=== PATIENT | male | born 1970 | race Caucasian/White ===

== ENCOUNTER 2024-01-23 20:22 | Emergency (ER) | payer OTHER ==
--- NOTE | 2024-01-23 20:27 | ERPHSYRPT ---
- History of Present Illness Time Seen by Provider: 01/23/24 20:27 Source: patient, family Exam Limitations: no limitations Physician History: This is a 53-year-old white male patient who was brought in by private vehicle secondary to him experiencing fall when walking down the steps. Patient experienced a seizure and he does not recall all the events. He has been having more frequent breaks from seizures and he was seen by his neurologist recently and they added an antiseizure medication and has modified the dosing of his drug regimen. Patient complains of a headache, neck pain sternal pain right shoulder pain and left thumb pain. Patient came by private vehicle in the ambulance bay and he was transported to his emergency department room by wheelchair. We immediately placed a cervical collar on him. Occurred: just prior to arrival Reason for Fall: fell from standing pos Injuries/Pain Location: neck, upper extremity (Right shoulder and left thumb) Loss of Consciousness: seizure Quality: aching Severity of Pain-Max: moderate Severity of Pain-Current: mild (To moderate) Modifying Factors: Improves With: movement Associated Symptoms (Fall): extremity injury (Right shoulder pain and left thumb pain), neck pain, seizures, No abdominal pain, No back pain, No confusion, No chest pain, No shortness of breath Allergies/Adverse Reactions: No Known Drug Allergies Allergy (Verified 01/23/24 20:25) Home Medications: Topiramate 100 mg [Topamax 100 MG] 400 mg PO BID 11/30/14 [History] ARIPiprazole [Abilify Mycite] 2 mg PO DAILY 01/23/24 [History] Cenobamate [Xcopri] 25 mg PO DAILY 01/23/24 [History] Lacosamide 200 mg PO BID 01/23/24 [History] Rasagiline Mesylate 1 mg PO DAILY 01/23/24 [History] clonazePAM 0.5 tab PO BID 01/23/24 [History] Hx Tetanus, Diphtheria Vaccination/Date Given: Yes Hx Influenza Vaccination/Date Given: No Hx Pneumococcal Vaccination/Date Given: No Travel Risk - International Travel Have you traveled outside of the country in past 3 weeks: No - Emerging Infectious Disease Are you exhibiting symptoms associated with any current EIDs: No - Review of Systems Constitutional: No Symptoms Eyes: No Symptoms Ears, Nose, & Throat: No Symptoms Respiratory: No Symptoms Cardiac: No Symptoms Abdominal/Gastrointestinal: No Symptoms Genitourinary Symptoms: No Symptoms Musculoskeletal: Neck Pain, Fall, Injury (Shoulder and left thumb) Skin: No Symptoms Neurological: No Symptoms Psychological: No Symptoms Endocrine: No Symptoms Hematologic/Lymphatic: No Symptoms Immunological/Allergic: No Symptoms All Other Systems: Reviewed and Negative - Past Medical History Pertinent Past Medical History: Yes Neurological History: No Pertinent History ENT History: No Pertinent History Cardiac History: No Pertinent History Respiratory History: No Pertinent History - Past Surgical History Past Surgical History: Yes Other Surgical History: VAGUS NERVE STIMULATOR - Social History Smoking Status: Never smoker Exposure to second hand smoke: No Drug Use: none Patient Lives Alone: No - Nursing Vital Signs Nursing Vital Signs: Initial Vital Signs Temperature 96.7 F 01/23/24 20:26 Pulse Rate 69 01/23/24 20:26 Respiratory Rate 20 01/23/24 20:26 Blood Pressure 159/93 01/23/24 20:26 O2 Sat by Pulse Oximetry 98 01/23/24 20:26 Pain Scale Pain Intensity 9 - Mariela Coma Score Best Eye Response (Mariela): (4) open spontaneously Best Verbal Response (Mariela): (5) oriented Best Motor Response ([place]): (6) obeys commands Mariela Total: 15 - Physical Exam General Appearance: no apparent distress, alert, anxiety Head Injury: no evidence of injury Eye Exam: PERRL/EOMI, eyes nml inspection ENT Exam: airway nml, nml ext.inspection, No evidence of ENT injury, No dental injury Neck Exam: supple, trachea midline, full range of motion, normal alignment, normal inspection, c-collar in place (The patient arrived turning his head looking around to and fro by private vehicle. We placed a c-collar since he got into the emergency department room) Respiratory/Chest Exam: normal breath sounds, other (Tenderness over the sternum to palpation), No respiratory distress, No ecchymosis, No crepitus, No decreased breath sounds Cardiovascular Exam: normal heart sounds, regular rate/rhythm Gastrointestinal Exam: soft, normal bowel sounds, No tenderness Rectal Exam: not done Back Exam: normal inspection, normal range of motion, No CVA tenderness, No vertebral tenderness Extremity Exam: normal inspection, normal range of motion, tenderness (Right shoulder and left thumb) Neurologic Exam: alert, oriented x 3, cooperative, harpooner II-XII nml as tested, nml cerebellar function, nml station & gait, sensation nml Skin Exam: normal color, warm, dry SpO2 Interpretation: normal O2 Delivery: Room Air - Course Nursing assessment & vital signs reviewed: Yes EKG Interpreted by Me: RATE (77), NORMAL AXIS, NORMAL INTERVALS, Other (The computer readout describes atrial flutter. However in leads I and II for a brief period of time given the suggestion but the other leads show normal sinus rhythm with no evidence of acute ischemia.) Ordered Tests: Active Orders 24 hr Category Date Time Status Technical Assistant STAT Care 01/23/24 20:44 Active EKG-ER Only STAT Care 01/23/24 20:43 Active IV Insertion STAT Care 01/23/24 20:43 Active Pulse Oximetry (ED) STAT Care 01/23/24 20:43 Active Seizure Precautions -SCCHED STAT Care 01/23/24 20:43 Active CERVICAL SPINE WO CONTRAST [CT] Stat Exams 01/23/24 20:43 Taken CHEST WITHOUT CONTRAST [CT] Stat Exams 01/23/24 20:46 Taken HAND (MINIMUM 3 VIEWS) Stat Exams 01/23/24 20:47 Taken HEAD WITHOUT CONTRAST [CT] Stat Exams 01/23/24 20:43 Taken SHOULDER Stat Exams 01/23/24 20:47 Taken CBC W DIFF Stat Lab 01/23/24 20:55 Completed CMP Stat Lab 01/23/24 20:55 Completed TROPONIN Q4H Lab 01/23/24 20:55 Received UA W/RFX UR CULTURE Stat Lab 01/23/24 20:43 Ordered Medication Summary Generic Name Dose Route Start Last Admin Trade Name Freq PRN Reason Stop Dose Admin Oxycodone/Acetaminophen 2 tab 01/23/24 22:22 Oxycodone Hcl/Apap 5 Mg/325 Mg Tablet PO 01/23/24 22:23 SENT HOME W/ PATIENT STA Discontinued Medications Generic Name Dose Route Start Last Admin Trade Name Freq PRN Reason Stop Dose Admin Morphine Sulfate 4 mg 01/23/24 22:21 Morphine Sulfate 4 Mg/Ml Injection IV 01/23/24 22:22 STAT ONE Ondansetron HCl 4 mg 01/23/24 22:21 Ondansetron Hcl 4 Mg/2 Ml Vial IV 01/23/24 22:22 STAT ONE Lab/Rad Data: Laboratory Result Diagrams 01/23/24 20:55 01/23/24 20:55 Laboratory Results 01/23/24 01/23/24 Range/Units 20:55 20:55 WBC 10.7 H (4.23-9.07) x10^3/uL RBC 4.48 L (4.63-6.08) x10^6/uL Hgb 15.3 (13.7-17.5) g/dL Hct 42.5 (40.1-51.0) % MCV 94.9 H (79.0-92.2) fL MCH 34.2 H (25.7-32.2) pg MCHC 36.0 (32.3-36.5) g/dL RDW 12.0 (11.6-14.4) % Plt Count 150 L (163-337) x10^3/uL MPV 9.1 L (9.4-12.4) fL Gran % 86.7 H (34.0-67.9) % Immature Gran % (Auto) 0.8 H (0.001-0.429) % Nucleat RBC Rel Count 0.0 (0.00-0.2) % Eos # (Auto) 0.03 L (0.04-0.54) x10^3/uL Immature Gran # (Auto) 0.09 H (0.001-0.031) x10^3u/L Absolute Lymphs (auto) 0.74 L (1.32-3.57) x10^3/uL Absolute Monos (auto) 0.54 (0.30-0.82) x10^3/uL Absolute Nucleated RBC 0.00 (0.00-0.012) x10^3u/L Lymphocytes % 6.9 L (21.8-53.1) % Monocytes % 5.0 L (5.3-12.2) % Eosinophils % 0.3 L (0.8-7.0) % Basophils % 0.3 (0.2-1.2) % Absolute Granulocytes 9.28 H (1.78-5.38) x10^3/uL Basophils # 0.03 (0.01-0.08) x10^3/uL Sodium 138 (135-145) mmol/L Potassium 3.6 (3.5-5.1) mmol/L Chloride 104 (98-107) mmol/L Carbon Dioxide 26 (22-30) mmol/L Anion Gap 11.8 (5-15) MEQ/L BUN 14 (9-20) mg/dL Creatinine 0.90 (0.66-1.25) mg/dL Estimated GFR 100.9 ML/MIN Glucose 154 H (74-106) mg/dL Calcium 8.8 (8.4-10.2) mg/dL Total Bilirubin 0.40 (0.2-1.3) mg/dL AST 43 (17-59) U/L ALT 43 (0-50) U/L Alkaline Phosphatase 86 (38-126) U/L Serum Total Protein 7.2 (6.3-8.2) g/dL Albumin 4.3 (3.5-5.0) g/dL - Progress Progress: improved, re-examined Progress Note: 01/23/24 21:25 My medical decision making and the assignment of moderate complexity to this patient's medical issue today is based on review of the patient's past medical history, reviewed patient's medication list, review patient drug allergy list, history present illness and physical findings on examination. The workup in this patient includes placement of a cervical collar once he arrived to the emergency department room, placement of intravenous line, twelve-lead EKG, CT scan of the head, CT scan of the cervical spine, x-ray of the right shoulder, x- ray of the left hand. Will also order CBC, CMP, urinalysis and urine drug screen. 01/23/24 22:05 I interpreted the patient's laboratory data results. Based on the laboratory data results there are no acute medical issues. I interpreted the preliminary report on the patient's left hand. I do not appr eciate an acute fracture or dislocation. I interpreted the preliminary report of the patient's right shoulder x-ray. I do not appreciate acute fracture or dislocation. CT scan of the head was interpreted by the radiologist and I reviewed the impression. The impression states head CT is negative for any acute intracranial abnormality. There is mild left cerebellar atrophy. There are no new or acute findings. CT scan of the cervical spine is negative for any acute fracture or subluxation. This study was interpreted by the radiologist. CT scan of the chest without contrast shows a nondisplaced midsternal fracture. There is evidence of emphysema and dependent atelectasis. There is a small hiatal hernia present. No other acute or emergent findings. This study was interpreted by the radiologist. 01/23/24 22:23 The patient desires to be discharged to home. I am allowing the patient to be discharged to home secondary to patient only having an isolated nondisplaced sternal fracture. The goal here is for pain control. Patient is awake alert and oriented and I believe he can monitor himself in a safe manner at home. Counseled pt/family regarding: lab results, diagnosis, need for follow-up, rad results Medical Desision Making - Independent Historian Additional History obtained from: Family - Diagnostic Testing Diagnostic test were ordered, analyzed, and reviewed by me: Yes Radiological Interpretation: Interpreted by me, Reviewed by me, Teleradiologist Report - Risk of complications The pt has a mod risk of morbidity or mortality based on: Need for prescription drug management - Departure Departure Disposition: Home Clinical Impression: Sternal fracture, Breakthrough seizure Condition: Stable Critical Care Time: No Referrals: FAIZA VILLAGRAN [ACTIVE STAFF] - Follow up/PCP as directed Additional Instructions: Ice pack to tender areas 3-4 times a day for 3 days. Call your primary care provider and your neurologist tomorrow, 01/24/2024 to make arrangements for follow-up appointment to be seen in the next 3 days. Return to the emergency department if your pains worsen or you have shortness of breath. Prescriptions: Oxycodone HCl/Acetaminophen [Percocet 5-325 mg Tablet] 1 each PO Q8H PRN PRN #6 tablet MDD 3 PRN Reason: Moderate To Severe Pain
[2024-01-23 20:48] VITALS: TEMP 96.7
[2024-01-23 21:04] LABS: Absolute Neutrophil Ct (ANC) 9.28 x10^3/uL (1.78-5.38); BASOPHIL % 0.3 % (0.2-1.2); Basophil (Absolute #) 0.03 x10^3/uL (0.01-0.08); Eosinophil % 0.3 % (0.8-7.0); Eosinophil (Absolute #) 0.03 x10^3/uL (0.04-0.54); Hematocrit 42.5 % (40.1-51.0); Hemoglobin 15.3 g/dL (13.7-17.5); IMMATURE GRAN # 0.09 x10^3u/L (0.001-0.031); IMMATURE GRAN % 0.8 % (0.001-0.429); Lymphocyte (Absolute #) 0.74 x10^3/uL (1.32-3.57); Lymphocytes % 6.9 % (21.8-53.1); Mean Cell Volume 94.9 fL (79.0-92.2); Mean Corpuscular Hemoglobin 34.2 pg (25.7-32.2); Mean Platelet Volume 9.1 fL (9.4-12.4); Monocyte (Absolute #) 0.54 x10^3/uL (0.30-0.82); Neutrophil % 86.7 % (34.0-67.9); Platelet Count 150 x10^3/uL (163-337); Red Blood Count 4.48 x10^6/uL (4.63-6.08); White Blood Count 10.7 x10^3/uL (4.23-9.07)
[2024-01-23 21:18] LABS: ALBUMIN 4.3 g/dL (3.5-5.0); ANION GAP 11.8 MEQ/L (5-15); BILIRUBIN,TOTAL 0.4 mg/dL (0.2-1.3); Calcium 8.8 mg/dL (8.4-10.2); Creatinine 1 0.9 mg/dL (0.66-1.25); EST GLOMERULAR FILTRATION RATE 100.9 ML/MIN; Potassium 3.6 mmol/L (3.5-5.1); Total Protein 7.2 g/dL (6.3-8.2)
[2024-01-23] MEDS ORDERED: Zofran 4 MG/2 ML VIAL ONE (22:39)
[2024-01-23] MEDS ORDERED: PERCOCET TABLET 5/325MG ONE (22:39)
[2024-01-23] MEDS: Zofran 4 MG/2 ML VIAL IV ONE (22:40)
[2024-01-23] MEDS: MORPHINE SULFATE 4 MG INJ IV ONE (22:40)
[2024-01-23] MEDS ORDERED: MORPHINE SULFATE 4 MG INJ ONE (22:40)
[2024-01-23 23:20] VITALS: BP 111/78; PULSE 77; RESP 18; O2SAT 97
[2024-01-23] MEDS: PERCOCET TABLET 5/325MG PO STA (23:28)
--- NOTE | 2024-01-24 08:44 | XRAY ---
Indication: Seizure. Status post fall. Multiple contiguous axial images obtained through the head without contrast. Comparison: October 09, 2006 There is age-appropriate global atrophy. Again mild atrophy left cerebellum. No acute intracranial hemorrhage, abnormal extra-axial fluid collection, or mass effect. Fourth ventricle is midline without hydrocephalus. Costa-white matter differentiation preserved. Bony calvarium intact. Visualized paranasal sinuses and mastoid air cells are clear. Impression: Again mild atrophy left cerebellum. No new/acute intracranial abnormalities.
--- NOTE | 2024-01-24 08:50 | XRAY ---
Indication: Seizure. Status post fall. Multiple contiguous axial images obtained through the cervical spine. Sagittal and coronal reformatted images obtained. Comparison: None Axial images negative for acute fracture, suspicious bony lesions, or spinal canal stenosis. Mild/moderate C2-C7 degenerative disc osteophyte complex. Incidental accessory ossicle tip of odontoid process. Sagittal and coronal reformatted images demonstrates normal alignment. Mild C3-C7 degenerative disc space narrowing. No acute compression fracture, sublocation, or jumped facet. Normal-appearing craniocervical junction. Visualized noncontrasted soft tissues demonstrates metallic jeovanny/leads lateral to left thyroid. CT head and CT chest reported separately. Impression: 1. Negative acute fracture/subluxation. 2. Multilevel degenerative changes.
--- NOTE | 2024-01-24 08:52 | XRAY ---
Indication: Pain following fall. Comparison: None 3 view right shoulder demonstrates minimal acromioclavicular degenerative changes and minimal right lung base subsegmental atelectasis/scarring. No other bony, articular, or soft tissue abnormalities.
--- NOTE | 2024-01-24 08:52 | XRAY ---
Indication: Pain following fall. Comparison: None 3 view left hand demonstrates mild 1st metacarpal multangular scaphoid degenerative changes. No other bony, articular, or soft tissue abnormalities.
--- NOTE | 2024-01-24 08:52 | XRAY ---
Indication: Seizure. Pain following fall. Multiple contiguous axial images obtained through the chest without contrast. Comparison: None Lungs demonstrates mild pulmonary emphysema and bilateral dependent atelectasis. No suspicious pulmonary mass/nodule, infiltrate, effusion, or pneumothorax. Heart not enlarged. Aorta is normal in course and caliber. No pathologic mediastinal lymphadenopathy. Small hiatal hernia. Bony thorax demonstrates nondisplaced acute fracture externum. Remaining bony thorax intact with minimal degenerative changes throughout spine and incidental left anterior chest wall electronic stimulator device. Limited upper abdomen is unremarkable. Impression: 1. Nondisplaced acute fracture externum. 2. Chronic findings including hiatal hernia and degenerative spondylosis.
== END 2024-01-23 23:36 | disposition home or self-care (01) ==
LOC: ED 20:22
DX: G40.909 Epilepsy, unspecified, not intractable, without status epilepticus (principal); S22.22XA Fracture of body of sternum, initial encounter for closed fracture; W10.9XXA Fall (on) (from) unspecified stairs and steps, initial encounter; R51.9 Headache, unspecified; M54.2 Cervicalgia; M25.511 Pain in right shoulder; M79.645 Pain in left finger(s); Z79.899 Other long term (current) drug therapy
CPT/HCPCS: 36000; 36415; 70450; 71250; 72125; 73030; 73130; 80053; 84146; 84484; 85025; 93005; 93041; 94760; 96374; 99284; J2270; J2405; A9270-GY

== ENCOUNTER 2024-07-13 09:50 | Emergency (ER) | payer OTHER ==
--- NOTE | 2024-07-13 09:52 | ERPHSYRPT ---
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 His symptoms began yesterday at approximately 10 PM per his report. He denies headache. He denies chest pain. He denies abdominal pain. He has no flulike symptoms. There have been no new medications. Patient has no known flu exposures. Patient states that he still is dizzy at this time. He has nausea. Timing/Duration: yesterday Activities at Onset: none Severity of Pain-Max: none Severity of Pain-Current: none Modifying Factors: Improves With: vomiting, other Associated Symptoms: nausea, vomiting (Dizziness), weakness, other (Dizziness) Previous symptoms: no prior history, no recent treatment Allergies/Adverse Reactions: No Known Drug Allergies Allergy (Verified 07/13/24 10:15) Home Medications: ARIPiprazole [Abilify Mycite] 5 mg PO DAILY 01/23/24 [History] Cenobamate [Xcopri] 200 mg PO DAILY 01/23/24 [History] Lacosamide 200 mg PO BID 01/23/24 [History] Rasagiline Mesylate 1 mg PO DAILY 01/23/24 [History] clonazePAM 0.5 tab PO BID 01/23/24 [History] carBAMazepine [Tegretol] 400 mg PO DAILY 07/13/24 [History] Hx Tetanus, Diphtheria Vaccination/Date Given: Yes Hx Influenza Vaccination/Date Given: No Hx Pneumococcal Vaccination/Date Given: No Travel Risk - Emerging Infectious Disease Are you exhibiting symptoms associated with any current EIDs: No - Review of Systems Constitutional: Weakness Eyes: No Symptoms Ears, Nose, & Throat: No Symptoms Respiratory: No Symptoms Cardiac: No Symptoms Abdominal/Gastrointestinal: Nausea, Vomiting, No Abdominal Pain, No Diarrhea, No Constipation, No Appetite Changes Genitourinary Symptoms: No Symptoms Musculoskeletal: No Symptoms Skin: No Symptoms Neurological: Dizziness Psychological: No Symptoms Endocrine: No Symptoms Hematologic/Lymphatic: No Symptoms Immunological/Allergic: No Symptoms All Other Systems: Reviewed and Negative - Past Medical History Pertinent Past Medical History: Yes Neurological History: Seizures ENT History: No Pertinent History Cardiac History: No Pertinent History Respiratory History: No Pertinent History Endocrine Medical History: No Pertinent History Musculoskeletal History: Osteoarthritis Other Medical History: PSH: VAGUS NERVE STIMULATOR (BATTERY REPLACED EVERY YEAR OR 2) - Past Surgical History Past Surgical History: Yes Other Surgical History: VAGUS NERVE STIMULATOR - Social History Smoking Status: Never smoker Exposure to second hand smoke: No Drug Use: none Patient Lives Alone: No - Social Determinants of Health Will the patient participate in the screening: Yes Do you worry about a steady place to live?: No In the past 12 months,have you had to go without utilities?: No Transportation Issues: No Has anyone in your support network made you feel unsafe?: No Have you or anyone in your house had to go without enough: No - Nursing Vital Signs Nursing Vital Signs: Initial Vital Signs Pulse Rate 59 L 07/13/24 10:00 Respiratory Rate 17 07/13/24 10:00 Blood Pressure 111/76 07/13/24 10:00 O2 Sat by Pulse Oximetry 96 07/13/24 10:00 Pain Scale Pain Intensity 0 - Physical Exam General Appearance: mild distress, alert, anxiety, thin Eye Exam: PERRL/EOMI, eyes nml inspection Ears, Nose, Throat Exam: normal ENT inspection, moist mucous membranes Neck Exam: normal inspection, non-tender, supple, full range of motion Respiratory Exam: normal breath sounds, lungs clear, airway intact, No chest tenderness, No respiratory distress Cardiovascular Exam: regular rate/rhythm, normal heart sounds, normal peripheral pulses Gastrointestinal/Abdomen Exam: soft, normal bowel sounds, No tenderness Rectal Exam: not done Back Exam: normal inspection, normal range of motion, No CVA tenderness, No vertebral tenderness Extremity Exam: normal inspection, normal range of motion, pelvis stable Neurologic Exam: alert, oriented x 3, cooperative, sole stapler welt II-XII nml as tested, sensation nml Skin Exam: normal color, warm, dry Lymphatic Exam: No adenopathy SpO2 Interpretation: normal O2 Delivery: Room Air - Course Nursing assessment & vital signs reviewed: Yes EKG Interpreted by Me: RATE (53), Sinus Rhythm, NORMAL AXIS, LAFB, NORMAL QRS, Other (There is borderline prolonged DE interval. No acute ischemia present. QTc is 392.) Ordered Tests: Active Orders 24 hr Category Date Time Status EKG-ER Only STAT Care 07/13/24 10:10 Active IV Insertion STAT Care 07/13/24 10:10 Active HEAD WITHOUT CONTRAST [CT] Stat Exams 07/13/24 10:11 Completed AMYLASE Stat Lab 07/13/24 10:00 Completed CBC W DIFF Stat Lab 07/13/24 10:00 Completed CMP Stat Lab 07/13/24 10:00 Completed LIPASE Stat Lab 07/13/24 10:00 Completed Lactic Acid Stat Lab 07/13/24 10:10 Completed Lactic Acid Stat Lab 07/13/24 12:30 Stop Req MAGNESIUM Stat Lab 07/13/24 10:00 Completed TROPONIN Q4H Lab 07/13/24 10:00 Completed TROPONIN Q4H Lab 07/13/24 14:15 Ordered TROPONIN Q4H Lab 07/13/24 18:15 Ordered UA W/RFX UR CULTURE Stat Lab 07/13/24 13:04 Completed Medication Summary Discontinued Medications Generic Name Dose Route Start Last Admin Trade Name Freq PRN Reason Stop Dose Admin Diphenhydramine HCl 25 mg 07/13/24 10:12 07/13/24 11:13 Diphenhydramine Hcl 50 Mg/Ml Vial IV 07/13/24 10:13 25 mg STAT ONE Administration Diphenhydramine HCl Confirm 07/13/24 10:54 Diphenhydramine Hcl 50 Mg/Ml Vial Administered 07/13/24 10:55 Dose 50 mg .ROUTE .STK-MED ONE Sodium Chloride 1,000 mls @ 999 mls/hr 07/13/24 10:10 07/13/24 13:56 Sodium Chloride 0.9% 1000 Ml IV 07/13/24 11:10 Infused .Q1H1M STA Infusion Sodium Chloride Confirm 07/13/24 10:54 Sodium Chloride 0.9% 1000 Ml Administered 07/13/24 10:55 Dose 1,000 mls @ ud .ROUTE .STK-MED ONE Prochlorperazine Edisylate 5 mg 07/13/24 10:10 07/13/24 11:09 Prochlorperazine Edisylate 10 Mg/2 Ml Vial IV 07/13/24 10:11 5 mg STAT ONE Administration Prochlorperazine Edisylate Confirm 07/13/24 10:54 Prochlorperazine Edisylate 10 Mg/2 Ml Vial Administered 07/13/24 10:55 Dose 10 mg .ROUTE .STK-MED ONE Lab/Rad Data: Laboratory Result Diagrams 07/13/24 10:00 07/13/24 10:00 Laboratory Results 07/13/24 07/13/24 07/13/24 Range/Units 13:04 10:34 10:10 WBC (4.23-9.07) x10^3/uL RBC (4.63-6.08) x10^6/uL Hgb (13.7-17.5) g/dL Hct (40.1-51.0) % MCV (79.0-92.2) fL MCH (25.7-32.2) pg MCHC (32.3-36.5) g/dL RDW (11.6-14.4) % Plt Count (163-337) x10^3/uL MPV (9.4-12.4) fL Gran % (34.0-67.9) % Immature Gran % (Auto) (0.001-0.429) % Nucleat RBC Rel Count (0.00-0.2) % Eos # (Auto) (0.04-0.54) x10^3/uL Immature Gran # (Auto) (0.001-0.031) x10^3u/L Absolute Lymphs (auto) (1.32-3.57) x10^3/uL Absolute Monos (auto) (0.30-0.82) x10^3/uL Absolute Nucleated RBC (0.00-0.012) x10^3u/L Lymphocytes % (21.8-53.1) % Monocytes % (5.3-12.2) % Eosinophils % (0.8-7.0) % Basophils % (0.2-1.2) % Absolute Granulocytes (1.78-5.38) x10^3/uL Basophils # (0.01-0.08) x10^3/uL Sodium (135-145) mmol/L Potassium (3.5-5.1) mmol/L Chloride (98-107) mmol/L Carbon Dioxide (22-30) mmol/L Anion Gap (5-15) MEQ/L BUN (9-20) mg/dL Creatinine (0.66-1.25) mg/dL Estimated GFR ML/MIN Glucose (74-106) mg/dL Lactic Acid 2.0 (0.4-2.0) Calcium (8.4-10.2) mg/dL Magnesium (1.6-2.3) mg/dL Total Bilirubin (0.2-1.3) mg/dL AST (17-59) U/L ALT (0-50) U/L Alkaline Phosphatase (38-126) U/L Troponin I (0.000-0.033) ng/mL Serum Total Protein (6.3-8.2) g/dL Albumin (3.5-5.0) g/dL Amylase (30-110) U/L Lipase (23-300) U/L Urine Color Dark Yellow (Yellow) Urine Appearance Clear (Clear) Urine pH 7.5 (4.6-8.0) Ur Specific [place] 1.025 (1.005-1.030) Urine Protein Trace A (Negative) Urine Glucose (UA) Negative (Negative) mg/dL Urine Ketones Negative (Negative) Urine Blood Negative (Negative) Urine Nitrite Negative (Negative) Urine Bilirubin Negative (Negative) Urine Urobilinogen 0.2 (0.2) mg/dL Ur Leukocyte Esterase Negative (Negative) U Hyaline Cast (Auto) NONE SEEN (0-2) /LPF Urine Microscopic RBC 0-2 (0-5) /HPF Urine Microscopic WBC 0-2 (0-5) /HPF Ur Epithelial Cells None Seen (None Seen) /HPF Urine Bacteria None Seen (None Seen) /HPF Urine Culture Reflexed NO (NO) Influenza Type A Ag NEGATIVE (NEGATIVE) Influenza Type B Ag NEGATIVE (NEGATIVE) RSV (PCR) NEGATIVE (NEGATIVE) SARS-CoV-2 (PCR) NEGATIVE (NEGATIVE) 07/13/24 07/13/24 07/13/24 Range/Units 10:00 10:00 10:00 WBC 3.3 L (4.23-9.07) x10^3/uL RBC 4.41 L (4.63-6.08) x10^6/uL Hgb 14.9 (13.7-17.5) g/dL Hct 42.8 (40.1-51.0) % MCV 97.1 H (79.0-92.2) fL MCH 33.8 H (25.7-32.2) pg MCHC 34.8 (32.3-36.5) g/dL RDW 12.5 (11.6-14.4) % Plt Count 131 L (163-337) x10^3/uL MPV 9.2 L (9.4-12.4) fL Gran % 67.7 (34.0-67.9) % Immature Gran % (Auto) 0.3 (0.001-0.429) % Nucleat RBC Rel Count 0.0 (0.00-0.2) % Eos # (Auto) 0.06 (0.04-0.54) x10^3/uL Immature Gran # (Auto) 0.01 (0.001-0.031) x10^3u/L Absolute Lymphs (auto) 0.69 L (1.32-3.57) x10^3/uL Absolute Monos (auto) 0.30 (0.30-0.82) x10^3/uL Absolute Nucleated RBC 0.00 (0.00-0.012) x10^3u/L Lymphocytes % 20.8 L (21.8-53.1) % Monocytes % 9.1 (5.3-12.2) % Eosinophils % 1.8 (0.8-7.0) % Basophils % 0.3 (0.2-1.2) % Absolute Granulocytes 2.24 (1.78-5.38) x10^3/uL Basophils # 0.01 (0.01-0.08) x10^3/uL Sodium 140 (135-145) mmol/L Potassium 3.8 (3.5-5.1) mmol/L Chloride 106 (98-107) mmol/L Carbon Dioxide 25 (22-30) mmol/L Anion Gap 12.5 (5-15) MEQ/L BUN 16 (9-20) mg/dL Creatinine 0.86 (0.66-1.25) mg/dL Estimated GFR 102.3 ML/MIN Glucose 120 H (74-106) mg/dL Lactic Acid (0.4-2.0) Calcium 8.8 (8.4-10.2) mg/dL Magnesium 2.2 (1.6-2.3) mg/dL Total Bilirubin 0.50 (0.2-1.3) mg/dL AST 36 (17-59) U/L ALT 33 (0-50) U/L Alkaline Phosphatase 72 (38-126) U/L Troponin I < 0.012 (0.000-0.033) ng/mL Serum Total Protein 7.3 (6.3-8.2) g/dL Albumin 4.3 (3.5-5.0) g/dL Amylase 82 (30-110) U/L Lipase 71 (23-300) U/L Urine Color (Yellow) Urine Appearance (Clear) Urine pH (4.6-8.0) Ur Specific [place] (1.005-1.030) Urine Protein (Negative) Urine Glucose (UA) (Negative) mg/dL Urine Ketones (Negative) Urine Blood (Negative) Urine Nitrite (Negative) Urine Bilirubin (Negative) Urine Urobilinogen (0.2) mg/dL Ur Leukocyte Esterase (Negative) U Hyaline Cast (Auto) (0-2) /LPF Urine Microscopic RBC (0-5) /HPF Urine Microscopic WBC (0-5) /HPF Ur Epithelial Cells (None Seen) /HPF Urine Bacteria (None Seen) /HPF Urine Culture Reflexed (NO) Influenza Type A Ag (NEGATIVE) Influenza Type B Ag (NEGATIVE) RSV (PCR) (NEGATIVE) SARS-CoV-2 (PCR) (NEGATIVE) - Progress Progress: improved, re-examined Progress Note: 07/13/24 10:57 My medical decision making of the assignment of moderate complexity to this patient's medical issue today is based on review of the patient's past medical history, review of the patient's medication list, reviewed patient drug allergy list, history present illness and physical findings on examination. The workup in this patient includes placement of an intravenous line, infusion of crystalloid solution, infusion of Benadryl intravenously and Compazine intravenously, CBC, CMP, twelve-lead EKG, troponin level, urinalysis and CT scan of the head without contrast. We also ordered a magnesium and viral swabs. Differential diagnosis includes but is not limited to viral illness, vertigo, dehydration, urinary tract infection, electrolyte abnormalities, arrhythmias, myocardial infarction, acute intracranial abnormality 07/13/24 14:13 I interpreted the patient's laboratory data results. Based on the laboratory data results, there are no acute, emergent medical issues. 07/13/24 14:[address] scan of the head without contrast was interpreted by the radiologist and I reviewed the impression. The impression states mild atrophy of the left cerebellum. No new/acute intracranial abnormalities. 07/13/24 14:16 The patient did not recall, but the mother recalled that there was a recent increase in the patient's medication Xcopri. In review of the side effects, the common side effects include nausea, vomiting, dizziness and balance issue. This patient's symptoms could be related to the recent increase in this medication. Counseled pt/family regarding: lab results, diagnosis, rad results Medical Desision Making - Independent Historian Additional History obtained from: Family - Diagnostic Testing Diagnostic test were ordered, analyzed, and reviewed by me: Yes Radiological Interpretation: Reviewed by me, Teleradiologist Report - Risk of complications The pt has a mod risk of morbidity or mortality based on: Need for prescription drug management - Departure Departure Disposition: Home Clinical Impression: Dizziness Condition: Stable Critical Care Time: No Referrals: JACQUIE AU [CONSULTING PHYSICIAN] - Follow up/PCP as directed Additional Instructions: Drink plenty of fluids. Take your meclizine and other medications as prescribed. Make sure you talk to your neurologist before you start your meclizine. Also, discussed with your neurologist what dosing your xcopri should be. Prescriptions: Meclizine HCl 25 mg [Antivert 25 mg] 25 mg PO Q8H PRN #10 tablet PRN Reason: Dizziness
[2024-07-13 10:15] VITALS: TEMP 97.4
[2024-07-13 10:34] LABS: Absolute Neutrophil Ct (ANC) 2.24 x10^3/uL (1.78-5.38); BASOPHIL % 0.3 % (0.2-1.2); Basophil (Absolute #) 0.01 x10^3/uL (0.01-0.08); Eosinophil % 1.8 % (0.8-7.0); Eosinophil (Absolute #) 0.06 x10^3/uL (0.04-0.54); Hematocrit 42.8 % (40.1-51.0); Hemoglobin 14.9 g/dL (13.7-17.5); IMMATURE GRAN # 0.01 x10^3u/L (0.001-0.031); IMMATURE GRAN % 0.3 % (0.001-0.429); Lymphocyte (Absolute #) 0.69 x10^3/uL (1.32-3.57); Lymphocytes % 20.8 % (21.8-53.1); Mean Cell Volume 97.1 fL (79.0-92.2); Mean Corpuscular Hemoglobin 33.8 pg (25.7-32.2); Mean Corpuscular Hgb Concent. 34.8 g/dL (32.3-36.5); Mean Platelet Volume 9.2 fL (9.4-12.4); Monocytes % 9.1 % (5.3-12.2); Neutrophil % 67.7 % (34.0-67.9); Platelet Count 131 x10^3/uL (163-337); Red Blood Count 4.41 x10^6/uL (4.63-6.08); Red Cell Distribution Width 12.5 % (11.6-14.4); White Blood Count 3.3 x10^3/uL (4.23-9.07)
[2024-07-13 10:47] LABS: ALBUMIN 4.3 g/dL (3.5-5.0); ANION GAP 12.5 MEQ/L (5-15); BILIRUBIN,TOTAL 0.5 mg/dL (0.2-1.3); Calcium 8.8 mg/dL (8.4-10.2); Creatinine 1 0.86 mg/dL (0.66-1.25); EST GLOMERULAR FILTRATION RATE 102.3 ML/MIN; MAGNESIUM 2.2 mg/dL (1.6-2.3); Potassium 3.8 mmol/L (3.5-5.1); Total Protein 7.3 g/dL (6.3-8.2)
[2024-07-13] MEDS ORDERED: Compazine 10 MG/2 ML ONE (10:54)
[2024-07-13] MEDS ORDERED: BENADRYL 50 MG/ML ONE (10:54)
[2024-07-13] MEDS ORDERED: Sodium Chloride 0.9% 1000 ML 1,000 ML ONE (10:54)
[2024-07-13] MEDS: Sodium Chloride 0.9% 1000 ML 1,000 ML IV STA (11:08)
[2024-07-13] MEDS: Compazine 10 MG/2 ML IV ONE (11:09)
[2024-07-13 11:10] LABS: INFLUENZA A NEGATIVE (NEGATIVE); INFLUENZA B NEGATIVE (NEGATIVE); RESPIRATORY SYNCTIAL VIRUS NEGATIVE (NEGATIVE); SARS-CoV-2 Xpert Express NEGATIVE (NEGATIVE)
[2024-07-13] MEDS: BENADRYL 50 MG/ML IV ONE (11:13)
--- NOTE | 2024-07-13 11:51 | XRAY ---
Indication: Dizziness. Multiple contiguous axial images obtained through the head without contrast. Comparison: January 23, 2024 There is age-appropriate global atrophy and mild atrophy left cerebellum unchanged. No acute intracranial hemorrhage, abnormal extra-axial fluid collection, or mass effect. Fourth ventricle is midline without hydrocephalus. [place]-white matter differentiation preserved. Bony calvarium intact. Visualized paranasal sinuses and mastoid air cells are clear. Impression: Again mild atrophy left cerebellum. No new/acute intracranial abnormalities.
[2024-07-13 13:06] VITALS: RESP 14
[2024-07-13 13:22] LABS: Appearance Clear (Clear); Bacteria None Seen /HPF (None Seen); Bilirubin Negative (Negative); Blood Negative (Negative); Epithelial Cells None Seen /HPF (None Seen); Glucose, Urine Negative (Negative); Hyaline Casts NONE SEEN /LPF (0-2); Ketones Negative (Negative); Leukocyte Esterase Negative (Negative); Nitrite Negative (Negative); Ph 7.5 (4.6-8.0); Protein,Urine Dip Trace (Negative); RBC 0-2 /HPF (0-5); Specific Gravity 1.025 (1.005-1.030); Urobilinogen 0.2 mg/dL (0.2); WBC 0-2 /HPF (0-5)
[2024-07-13 14:21] VITALS: BP 168/80; PULSE 76; O2SAT 94
== END 2024-07-13 14:48 | disposition home or self-care (01) ==
LOC: ED 09:50
DX: R42 Dizziness and giddiness (principal); R11.2 Nausea with vomiting, unspecified; Z79.899 Other long term (current) drug therapy
CPT/HCPCS: 0241U; 36415; 70450; 80053; 81001; 82150; 83605; 83690; 83735; 84484; 85025; 93005; 96374; 96375; 99285; 99284; J1200